=== PATIENT | male | born 1965 | race African-American/Black ===

== ENCOUNTER 2022-03-25 08:47 | Emergency (ER) | payer MEDICAID ==
[~2022-03-25] VITALS: Ht 167.6 cm; Wt 91.0 kg
[2022-03-25] MEDS ORDERED: HYDROCODONE/ACETAMINOPHEN 5/325MG TABLET PO ONE (12:00)
[2022-03-25 12:18] VITALS: BP 176/107
[2022-03-25 12:49] LABS: CLARITY URINE CLEAR (CLEAR); COLOR URINE YELLOW (YELLOW); KETONES URINE TRACE (NEGATIVE); LEUKOCYTE ESTERASE URINE NEGATIVE (NEGATIVE); NITRITE URINE NEGATIVE (NEGATIVE); OCCULT BLOOD URINE NEGATIVE (NEGATIVE); PH URINE 5.5 (4.5-8.0); PROTEIN URINE 2+ (NEGATIVE); SPECIFIC GRAVITY URINE 1.027 (1.005-1.030); UROBILINOGEN URINE 0.2 E.U./dL (0.2-1.0)
[2022-03-25 14:42] LABS: EOSINOPHILS % 4.6 % (0.0-5.0); HEMATOCRIT. 39.1 % (42.0-52.0); HEMOGLOBIN. 13.1 g/dL (14.0-18.0); LYMPHOCYTES % 44.4 % (20.0-50.0); MEAN CORPUSCULAR VOLUME 86.6 fL (80.0-94.0); MEAN PLATELET VOLUME 7.4 fl (7.4-10.4); MONOCYTES % 7.7 % (2.0-8.0); NEUTROPHILS % 42.3 % (40.0-76.0); PLATELET 280 x1000/uL (130-400); RED BLOOD CELL COUNT 4.52 mill/uL (4.7-6.1); RED CELL DISTRIBUTION WIDTH 14.4 % (11.6-14.6)
[2022-03-25 14:55] LABS: CHLORIDE 107 mEq/L (98-107)
[2022-03-25 15:15] LABS: PROTHROMBIN TIME 10.3 sec (9.6-11.0)
[2022-03-25] MEDS ORDERED: NAPR-681 MT ×3 (16:02→16:10)
[2022-03-25] MEDS ORDERED: TOPUD MT (16:02)
== END 2022-03-25 16:41 | disposition home or self-care (01) ==
LOC: ER 08:47
DX: N50.82 Scrotal pain (principal); I10 Essential (primary) hypertension
CPT/HCPCS: 36415; 74176; 76870; 80053; 81003; 83605; 85025; 93976; 99284

== ENCOUNTER 2022-05-13 07:09 | Inpatient (IN) | payer MEDICAID ==
[~2022-05-13] VITALS: Ht 167.6 cm; Wt 90.7 kg
[~2022-05-13 07:09] MED LIST: NAPR-681 MT; TOPUD MT
[2022-05-13 08:40] LABS: BASOPHILS % 0.5 % (0.0-2.0); EOSINOPHILS % 7.3 % (0.0-5.0); HEMATOCRIT. 40.5 % (42.0-52.0); HEMOGLOBIN. 13.5 g/dL (14.0-18.0); LYMPHOCYTES % 39.3 % (20.0-50.0); MEAN CORPUSCULAR HEMOGLOBIN 29.2 pg (28.0-32.0); MEAN CORPUSCULAR VOLUME 87.4 fL (80.0-94.0); MEAN PLATELET VOLUME 7.9 fl (7.4-10.4); MONOCYTES % 8.4 % (2.0-8.0); NEUTROPHILS % 44.5 % (40.0-76.0); PLATELET 300 x1000/uL (130-400); RED BLOOD CELL COUNT 4.63 mill/uL (4.7-6.1); RED CELL DISTRIBUTION WIDTH 14.8 % (11.6-14.6)
[2022-05-13 08:49] LABS: PROTHROMBIN TIME 10.3 sec (9.6-11.0)
[2022-05-13 08:54] LABS: CHLORIDE 103 mEq/L (98-107)
[2022-05-13] MEDS ORDERED: ASPIRIN 325MG EC TABLET PO ONE (09:15)
[2022-05-13] MEDS ORDERED: METOPROLOL TARTRATE 25MG TABLET PO SCH (11:15)
[2022-05-13] MEDS ORDERED: ACETAMINOPHEN 325MG TABLET PO PRN (12:15)
[2022-05-13] MEDS ORDERED: TRAMADOL 50MG TABLET PO PRN (12:15)
[2022-05-13] MEDS ORDERED: DOCUSATE SODIUM 100MG CAPSULE PO PRN (12:15)
[2022-05-13] MEDS ORDERED: GUAIFENESIN 200MG/10ML SUGAR FREE UDC PO PRN (12:15)
[2022-05-13] MEDS ORDERED: MAGNESIUM/ALUMINUM HYDROXIDE/SIMETHICONE 30ML UDC PO PRN (12:15)
[2022-05-13] MEDS ORDERED: ONDANSETRON HCL 4MG/2ML INJ IV PRN (12:15)
[2022-05-13] MEDS ORDERED: NALOXONE HCL 0.4MG/ML VIAL IV PRN (12:30)
[2022-05-13] MEDS: AMLODIPINE 10MG TABLET PO SCH (12:45)
[2022-05-13] MEDS ORDERED: HYDRALAZINE 20MG/ML VIAL IV PRN (12:45)
[2022-05-13] MEDS ORDERED: LOSARTAN POTASSIUM 50 MG TABLET PO SCH (13:00)
[2022-05-13] MEDS ORDERED: REGADENOSON 0.4 MG/5 ML IV ONE (13:00)
[2022-05-13] MEDS: ENOXAPARIN 40MG/0.4ML SYR SUBCUT SCH (14:37)
[2022-05-13] MEDS: LOSARTAN POTASSIUM 50 MG TABLET PO SCH ×2 (14:38→22:02)
[2022-05-13 17:34] VITALS: BP 160/95
[2022-05-13 17:36] VITALS: BP 160/95
[2022-05-13 20:00] VITALS: BP 147/78
[2022-05-13 20:16] LABS: HEPATITIS B SURFACE ANTIGEN NEGATIVE
[2022-05-13 21:23] LABS: CLARITY URINE CLEAR (CLEAR); COLOR URINE YELLOW (YELLOW); KETONES URINE NEGATIVE (NEGATIVE); LEUKOCYTE ESTERASE URINE NEGATIVE (NEGATIVE); NITRITE URINE NEGATIVE (NEGATIVE); OCCULT BLOOD URINE NEGATIVE (NEGATIVE); PROTEIN URINE NEGATIVE (NEGATIVE); SPECIFIC GRAVITY URINE 1.007 (1.005-1.030); UROBILINOGEN URINE 0.2 E.U./dL (0.2-1.0)
[2022-05-13 21:36] LABS: *AMPHETAMINES SCREEN URINE NEGATIVE (NEGATIVE); *BARBITURATES SCREEN URINE NEGATIVE (NEGATIVE); *BENZODIAZEPINES SCREEN URINE NEGATIVE (NEGATIVE); *COCAINE SCREEN URINE NEGATIVE (NEGATIVE); CANNABINOID URINE SCREEN NEGATIVE (NEGATIVE); METHADONE URINE SCREEN NEGATIVE (NEGATIVE); OPIATES URINE SCREEN NEGATIVE (NEGATIVE); PHENCYCLIDINE URINE SCREEN NEGATIVE (NEGATIVE)
[2022-05-14] VITALS: BP 128/56
[2022-05-14 04:00] VITALS: BP 149/98
[2022-05-14 07:21] LABS: BASOPHILS % 0.6 % (0.0-2.0); EOSINOPHILS % 6.3 % (0.0-5.0); LYMPHOCYTES % 40.5 % (20.0-50.0); MEAN CORPUSCULAR HEMOGLOBIN 29.1 pg (28.0-32.0); MEAN CORPUSCULAR VOLUME 87.5 fL (80.0-94.0); MEAN PLATELET VOLUME 8.5 fl (7.4-10.4); MONOCYTES % 10.3 % (2.0-8.0); NEUTROPHILS % 42.3 % (40.0-76.0); PLATELET 291 x1000/uL (130-400); RED CELL DISTRIBUTION WIDTH 14.7 % (11.6-14.6)
[2022-05-14 07:28] LABS: CHLORIDE 100 mEq/L (98-107)
[2022-05-14 07:44] LABS: HDL CHOLESTEROL 97 mg/dL (40-59); LDL CHOLESTEROL 96 mg/dL (5-100); T4 FREE 0.87 ng/dL (0.76-1.46)
[2022-05-14 08:00] VITALS: BP 164/101
[2022-05-14] MEDS ORDERED: ASPIRIN 81MG EC TABLET PO SCH (09:00)
[2022-05-14] MEDS: LOSARTAN POTASSIUM 50 MG TABLET PO SCH ×2 (09:08→17:57)
[2022-05-14] MEDS: AMLODIPINE 10MG TABLET PO SCH (09:08)
[2022-05-14] MEDS ORDERED: REGADENOSON 0.4 MG/5 ML IV ONE (10:58)
[2022-05-14] MEDS ORDERED: HYDRALAZINE 20MG/ML VIAL ONE (11:24)
[2022-05-14 12:45] VITALS: BP 144/78
[2022-05-14] MEDS: ENOXAPARIN 40MG/0.4ML SYR SUBCUT SCH (13:16)
[2022-05-14] MEDS ORDERED: HYDRALAZINE HCL 100MG TABLET PO SCH (14:00)
[2022-05-14 16:00] VITALS: BP 149/80
[2022-05-14 16:56] VITALS: BP 143/85
[2022-05-14] MEDS ORDERED: ATORVASTATIN CALCIUM 20MG TABLET PO SCH (21:00)
[2022-05-14] MEDS ORDERED: ENOXAPARIN 30MG/0.3ML SYR SUBCUT SCH (22:00)
== END 2022-05-14 18:20 | disposition home or self-care (01) | DRG 190 ==
LOC: ER 07:09 → 7WST 09:46 → EDBEDREQ 09:49 → EDBEDREQTM 09:49
PROVIDERS: ADMIT Hospitalist; ATTEND Hospitalist
DX: I21.4 Non-ST elevation (NSTEMI) myocardial infarction (principal); E66.9 Obesity, unspecified; E78.5 Hyperlipidemia, unspecified; I10 Essential (primary) hypertension; Z79.82 Long term (current) use of aspirin; Z79.899 Other long term (current) drug therapy; Z68.32 Body mass index [BMI] 32.0-32.9, adult; M94.0 Chondrocostal junction syndrome [Tietze]
CPT/HCPCS: 36415; 71045; 78452; 80048; 80053; 80061; 80305; 81003; 83880; 84439; 84443; 84481; 84484; 85025; 86803; 87340; 93005; 93017; 93306; 99285; A9500; J0360; J1650; J2785

== ENCOUNTER 2022-06-18 05:38 | Emergency (ER) | payer MEDICAID ==
[~2022-06-18] VITALS: Ht 167.6 cm; Wt 88.0 kg
[2022-06-18 05:43] VITALS: BP 155/85
[2022-06-18] MEDS ORDERED: HYDR100T26 MT (10:52)
[2022-06-18] MEDS ORDERED: LOSA50TA41 PO (10:52)
[2022-06-18] MEDS ORDERED: AMLO10TA80 PO (10:52)
== END 2022-06-18 11:00 | disposition home or self-care (01) ==
LOC: ER 05:38
DX: Z76.0 Encounter for issue of repeat prescription (principal)
CPT/HCPCS: 99281

== ENCOUNTER 2022-07-15 05:28 | Emergency (ER) | payer MEDICAID ==
[~2022-07-15] VITALS: Ht 167.6 cm; Wt 96.0 kg
[~2022-07-15 05:28] MED LIST changes: +AMLO10TA80 PO; +HYDR100T26 MT; +LOSA50TA41 PO
[2022-07-15 07:14] VITALS: BP 149/81
[2022-07-15] MEDS ORDERED: IBUPROFEN 600MG TABLET PO ONE (07:15)
[2022-07-15] MEDS ORDERED: IBUP-2029 MT (08:25)
== END 2022-07-15 09:11 | disposition home or self-care (01) ==
LOC: ER 05:28
DX: S90.31XA Contusion of right foot, initial encounter (principal); I10 Essential (primary) hypertension; X58.XXXA Exposure to other specified factors, initial encounter; Y93.89 Activity, other specified; Y92.89 Other specified places as the place of occurrence of the external cause; Y99.8 Other external cause status
CPT/HCPCS: 73630; 99283

== ENCOUNTER 2022-07-24 05:37 | Emergency (ER) | payer MEDICAID ==
[~2022-07-24] VITALS: Ht 167.6 cm; Wt 94.5 kg
[~2022-07-24 05:37] MED LIST changes: +IBUP-2029 MT
[2022-07-24 05:45] VITALS: BP 163/78
[2022-07-24] MEDS ORDERED: HYDR25TA PO (06:51)
[2022-07-24] MEDS ORDERED: LOSA50TA41 PO (06:51)
[2022-07-24] MEDS ORDERED: AMLO10TA80 PO (06:51)
[2022-07-24] MEDS ORDERED: HYDR100T26 PO (06:51)
== END 2022-07-24 07:06 | disposition home or self-care (01) ==
LOC: ER 05:37
DX: Z76.0 Encounter for issue of repeat prescription (principal); I10 Essential (primary) hypertension; Z79.899 Other long term (current) drug therapy
CPT/HCPCS: 99281